=== PATIENT | female | born 1985 | race American Indian/Alaskan Native ===

== ENCOUNTER 2021-10-03 10:02 | Outpatient (CLI) | payer MEDICAID ==
[2021-10-03 10:56] VITALS: BP 119/69
--- NOTE | 2021-10-03 12:30 | Ultrasound Report ---
ULTRASOUND OBSTETRIC LIMITED ULTRASOUND BIOPHYSICAL PROFILE INDICATION / CLINICAL INFORMATION: LOW FLUID - BPP AND YAMILEX. Clinical Gestational Age (GA): 40.4 weeks.days COMPARISON: None available. FINDINGS: BREATHING MOVEMENT = 2 GROSS BODY MOVEMENT = 2 TONE = 2 QUALITATIVE AMNIOTIC FLUID VOLUME = 2 TOTAL BIOPHYSICAL SCORE = 8/8 HEART RATE (beats per minute): 138 AMNIOTIC FLUID INDEX (cm) = 7.9 (normal = 7-24 cm) PRESENTATION: Cephalic. ADDITIONAL FINDINGS: None. IMPRESSION: 1. Biophysical Score = 8/8 Signer Name: Harshal Vigil MD Signed: 10/03/2021 12:26 PM Workstation Name: [employer])
== END 2021-10-03 12:44 | disposition home or self-care (01) ==
LOC: TRG 10:02 → APU 10:05 → TRG 12:44
PROVIDERS: ATTEND Obstetrics & Gynecology
DX: Z34.93 Encounter for supervision of normal pregnancy, unspecified, third trimester (principal); Z3A.41 41 weeks gestation of pregnancy
CPT/HCPCS: 59025; 76815; 76819

== ENCOUNTER 2021-10-07 20:49 | Inpatient (IN) | payer MEDICAID ==
[2021-10-07] MEDS ORDERED: MINERAL OIL 30 ML ORAL LIQD PO PRN (22:17)
[2021-10-07] MEDS ORDERED: miSOPROStol 200 MCG TAB PR PRN (22:17)
[2021-10-07] MEDS ORDERED: LOPERAMIDE 2 MG CAP PO PRN (22:17)
[2021-10-07] MEDS ORDERED: ONDANSETRON 4 MG/2 ML INJ IV PRN (22:17)
[2021-10-07] MEDS ORDERED: ACETAMINOPHEN 325 MG TAB PO PRN (22:17)
[2021-10-07] MEDS ORDERED: fentaNYL 100 MCG/2 ML INJ IV PRN (22:17)
[2021-10-07] MEDS ORDERED: CARBOPROST TROMETHAMINE 250 MCG/1 ML INJ IM PRN (22:17)
[2021-10-07] MEDS ORDERED: METHYLERGONOVINE MALEATE 0.2 MG/ML VIAL IM PRN (22:17)
[2021-10-07] MEDS ORDERED: LIDOCAINE (2%) 20 MG/1 ML VIAL 20 ML MDV INFILTRATI ONE (22:17)
[2021-10-07] MEDS ORDERED: TERBUTALINE 1 MG/1 ML INJ SUB-Q PRN (22:17)
[2021-10-07] MEDS ORDERED: BUTORPHANOL 2 MG/1 ML INJ IV PRN (22:17)
[2021-10-07] MEDS ORDERED: OXYTOCIN 10 UNIT/1 ML INJ IM PRN (22:17)
[2021-10-07] MEDS ORDERED: PENICILLIN G POTASSIUM 5 MIL.UNITS in SODIUM CHLORIDE 0.9% 100 ML IV ONE (22:49)
[2021-10-07 22:58] LABS: Hematocrit 32.4 % (30.3-42.9); Hemoglobin 10.5 gm/dl (10.1-14.3); Mean Corpuscular HGB Conc 33 % (30-34); Mean Corpuscular Volume 84 fl (79-97); Platelet Count 216 K/mm3 (140-440); Red Blood Count 3.87 M/mm3 (3.65-5.03); Red Cell Distribution Width 14.3 % (13.2-15.2)
[2021-10-07] MEDS ORDERED: OXYTOCIN DRIP 30 UNITS/500 ML BAG IV SCH ×2 (23:00)
[2021-10-07] MEDS: LACTATED RINGERS 1,000 ML IV SCH (23:11)
--- NOTE | 2021-10-07 23:53 | History and Physical Report ---
History of Present Illness Date of examination: 10/07/21 Date of admission: 10/07/2021 Chief complaint: Induction of labor secondary to post due date, oligohydramnios, and growth restriction History of present illness: 36-year-old at 41-1/7 weeks gestation presents to labor and delivery for induction of labor secondary to post due date, oligohydramnios, and growth restriction. The patient has a history of a previous and successful 's thereafter. She has no vaginal bleeding or leaking of fluid. There is good movement. The method of cervical ripening was chosen based on shared medical decision making was Cook's catheter with a low-dose Pitocin. She was scheduled for a repeat delivery today. However, she changed her mind and strongly desired to attempt another . The risks, alternatives, and benefits were explained the patient. She understood the risk of uterine rupture is less than 1%. She wished to proceed. Past History Past Medical History: asthma, other (Sickle cell trait) Past Surgical History: section BLENDER SNUFF History: abnormal PAP smear (ASCUS Pap, HR-HPV (+)), herpes Family/Genetic History: diabetes, hypertension Social history: no significant social history - Obstetrical History Expected Date of Delivery: 09/29/21 Actual Gestation: 41 Week(s) 2 Day(s) : 8 Para: 4 Hx # Term Pregnancies: 4 Spontaneous Abortions: 2 Induced : 1 Medications and Allergies Allergies Allergy/AdvReac Type Severity Reaction Status Date / Time No Known Allergies Allergy Unverified 11/24/14 12:42 Home Medications Medication Instructions Recorded Confirmed Last Taken Type Nitrofurantoin [place]/M-Cryst 100 mg PO Q12HR #14 capsule 11/24/14 Unknown Rx [Macrobid CAP] metroNIDAZOLE 0.75%(NF) [Metrogel 1 applicatio TP BID #1 tube 11/24/14 Unknown Rx 0.75% TOPICAL] Active Meds: Active Medications Acetaminophen (Acetaminophen 325 Mg Tab) 650 mg PO Q4H PRN PRN Reason: Pain, Mild (1-3) Butorphanol Tartrate (Butorphanol 2 Mg/1 Ml Inj) 1 mg IV Q2H PRN PRN Reason: Pain, Moderate(4-6) LABOR PAIN Carboprost Tromethamine (Carboprost Tromethamine 250 Mcg/1 Ml Inj) 250 mcg IM ONCE PRN PRN Reason: Uterine Bleeding Ephedrine Sulfate (Ephedrine Sulfate 50 Mg/1 Ml Inj) 10 mg IV Q2M PRN PRN Reason: Hypotension Fentanyl (Fentanyl 100 Mcg/2 Ml Inj) 100 mcg IV Q2H PRN PRN Reason: Pain,Severe (7-10) LABOR PAIN Penicillin G Potassium 2.5 mil (.units/ Sodium Chloride) 50 mls @ 100 mls/hr IV Q4H MAY; Protocol Oxytocin/Sodium Chloride (Pitocin/Ns 30 Unit/500ml) 30 units in 500 mls @ 2 mls/hr IV TITR MAY; Protocol Last Admin: 10/07/21 23:17 Dose: 2 mls/hr, 2 mls/hr Lactated Ringer's (Lactated Ringers) 1,000 mls @ 125 mls/hr IV DIRECT MAY Last Admin: 10/07/21 23:11 Dose: 125 mls/hr Oxytocin/Sodium Chloride (Pitocin/Ns 30 Unit/500ml) 30 units in 500 mls @ 40 mls/hr IV TITR MAY; Protocol Loperamide HCl (Loperamide 2 Mg Cap) 2 mg PO ONCE PRN PRN Reason: give with Hemabate Methylergonovine Maleate (Methylergonovine Maleate 0.2 Mg/Ml Vial) 0.2 mg IM ONCE PRN PRN Reason: Uterine Bleeding Mineral Oil (Mineral Oil 30 Ml Oral Liqd) 30 ml PO QHS PRN PRN Reason: Constipation Misoprostol (Misoprostol 200 Mcg Tab) 800 mcg [place] ONCE PRN PRN Reason: Uterine Bleeding Ondansetron HCl (Ondansetron 4 Mg/2 Ml Inj) 4 mg IV Q8H PRN PRN Reason: Nausea And Vomiting Oxytocin (Oxytocin 10 Unit/1 Ml Inj) 10 unit IM ONCE PRN PRN Reason: Uterine Bleeding Terbutaline Sulfate (Terbutaline 1 Mg/1 Ml Inj) 0.25 mg SUB-Q ONCE PRN PRN Reason: Hyperstimulation/Hypertonicity Review of Systems All systems: negative - Vital Signs Vital signs: Vital Signs Resp Pulse Ox 14 100 10/07/21 21:09 10/07/21 21:09 Temp Pulse Resp BP Pulse Ox 79 14 110/63 100 10/07/21 23:50 10/07/21 21:09 10/07/21 23:40 10/07/21 23:50 - Physical Exam Breasts: Positive: normal Cardiovascular: Regular rate Lungs: Positive: Normal air movement Abdomen: Positive: normal appearance Genitourinary (Female): Positive: normal external genitalia, normal perenium Vulva: both: normal Vagina: Positive: normal moisture Uterus: Positive: enlarged Adnexa: both: normal Anus/Rectum: Positive: normal perianal skin Extremities: Positive: normal Deep Tendon Reflex Grade: Normal +2 - Obstetrical FHR: category 1 Uterine Contraction Monitor Mode: External Results Result Diagrams: 10/07/21 22:50 Abnormal lab results 10/07/21 Range/Units 22:50 MCH 27 L (28-32) pg All other labs normal. Ultrasound: report reviewed, image reviewed (OB ULtrasound Limited= SLIUP. Anterior placenta. Vertex. EFW= 2844 g (3rd %-ile). YAMILEX= 4.7 cm.) Assessment and Plan - Patient Problems (1) 41 weeks gestation of Current Visit: Yes Status: Acute Plan to address problem: care is up-to-date at [facility] [employer]. The patient is GBS positive. (2) Post term at 41 weeks gestation Current Visit: Yes Status: Acute Plan to address problem: This patient is past her due date. Induction of labor is recommended. (3) growth restriction Current Visit: Yes Status: Acute Plan to address problem: The estimated weight is in the 3rd percentile. The etiology for this is unknown. Induction of labor is recommended at this gestational age to decrease the risk of stillbirth. (4) Oligohydramnios in third trimester Current Visit: Yes Status: Acute Plan to address problem: The amniotic fluid index is 4.7 cm. The etiology for this is unknown. Induction of labor is recommended to decrease the risk of stillbirth. (5) Desires (vaginal after ) trial Current Visit: Yes Status: Acute Plan to address problem: The patient has a history of previous delivery followed by successful 's. She was scheduled for a repeat delivery today. However, she changed her mind and strongly desired to attempt another . The risks, alternatives, and benefits were explained the patient. She understood the risk of uterine rupture is less than 1%. She wished to proceed. The method of cervical ripening was chosen based on shared medical decision making was Cook's catheter with a low-dose Pitocin. (6) Previous delivery, antepartum Current Visit: Yes Status: Acute Plan to address problem: The patient has a history of a previous delivery. (7) Asthma affecting in third trimester Current Visit: Yes Status: Acute Plan to address problem: Prescribed home dose of albuterol. No Hemabate in the event that there is hemorrhage. (8) Encounter for induction of labor Current Visit: Yes Status: Acute Plan to address problem: The method of cervical ripening was chosen based on shared medical decision making was Cook's catheter with a low-dose Pitocin. (9) Group B Streptococcus carrier, +RV culture, currently Current Visit: Yes Status: Acute Plan to address problem: Penicillin is ordered for intrapartum GBS prophylaxis. (10) Genital herpes affecting in third trimester Current Visit: Yes Status: Acute Plan to address problem: There are no active herpes lesions. There are no prodromal symptoms. The patient was on Valtrex for suppression. We will continue the same dose. (11) Sickle cell trait in mother affecting Current Visit: Yes Status: Acute Plan to address problem: The patient is sickle cell trait positive. Her partner was advised to be tested. (12) ASCUS with positive high risk HPV cervical Current Visit: Yes Status: Acute Plan to address problem: Colposcopy .
[2021-10-08] MEDS ORDERED: BUTORPHANOL 2 MG/1 ML INJ IV PRN (00:01)
--- NOTE | 2021-10-08 00:02 | Ultrasound Report ---
ULTRASOUND OBSTETRIC LIMITED INDICATION / CLINICAL INFORMATION: estimated weight, YAMILEX. - Clinical Gestational Age (GA) in weeks, days: 41, 1 TECHNIQUE: Transabdominal. COMPARISON: 10/03/2021 FINDINGS: HEART RATE (beats per minute): 132 AMNIOTIC FLUID INDEX (cm) = 4.7 (normal = 7-24 cm) PRESENTATION: Cephalic. ADDITIONAL FINDINGS: Estimated age by ultrasound is 36 weeks 0 days. Estimated weight is 2844 g . Previously, amniotic fluid index was 7.9 cm. IMPRESSION: 1. Viable intrauterine has an amniotic fluid index of 4.7 cm. 2. Estimated weight 2844 g. Signer Name: Alberto Brewster MD Signed: 10/07/2021 11:58 PM Workstation Name: [id number]
[2021-10-08] MEDS ORDERED: PENICILLIN G POTASSIUM 2.5 MIL.UNITS in SODIUM CHLORIDE 0.9% 50 ML IV SCH (02:00)
[2021-10-08] MEDS ORDERED: fentaNYL-BUPIV 2 MCG/ML-0.125% 200 MCG/100 ML BAG EPIDURAL SCH ×2 (02:13→05:00)
[2021-10-08] MEDS ORDERED: ePHEDrine SULFATE 50 MG/1 ML INJ IV PRN (02:13)
[2021-10-08] MEDS ORDERED: NALOXONE 0.4 MG/1 ML INJ IV PRN ×2 (02:13→04:43)
--- NOTE | 2021-10-08 02:47 | Anesthesia Consultation ---
Anesthesia Consult and Med Hx Date of service: 10/08/21 - Airway Anesthetic Teeth Evaluation: Good ROM Head & Neck: Adequate Mental/Hyoid Distance: Adequate Mallampati Class: Class II Intubation Access Assessment: Probably Good - Pulmonary Exam CTA: Yes - Cardiac Exam Cardiac Exam: RRR - Pre-Operative Health Status ASA Pre-Surgery Classification: ASA2 Proposed Anesthetic Plan: Epidural - Pulmonary Hx Smoking: No Hx Asthma: No Hx Respiratory Symptoms: No SOB: No COPD: No Home Oxygen Therapy: No Hx Pneumonia: No Hx Sleep Apnea: No - Cardiovascular System Hx Hypertension: No Hx Coronary Artery Disease: No Hx Heart Attack/AMI: No Hx Angina: No Hx Percutaneous Transluminal Coronary Angioplasty (PTCA): No Hx Cardia Arrhythmia: No Hx Pacemaker: No Hx Internal Defibrillator: No Hx Valvular Heart Disease: No Hx Heart Murmur: No Hx Peripheral Vascular Disease: No - Central Nervous System Hx Neuromuscular Disorder: No Hx Seizures: No CVA: No Hx Psychiatric Problems: No - Gastrointestinal Hx Ulcer: No Hx Gastroesophageal Reflux Disease: No - Endocrine Hx Renal Disease: No Hx End Stage Renal Disease: No Hx Cirrhosis: No Hx Liver Disease: No Hx Insulin Dependent Diabetes: No Hx Non-Insulin Dependent Diabetes: No Hx Thyroid Disease: No Hx Hypothyroidism: No Hx Hyperthyroidism: No - Hematic Hx Anemia: No Hx Sickle Cell Disease: No - Other Systems Hx Alcohol Use: No Hx Substance Use: No Hx Cancer: No Hx Obesity: No
--- NOTE | 2021-10-08 02:47 | Anesthesia Day of Surgery ---
Anesthesia Day of Surgery - Day of Surgery Patient Examined: Yes Patient H&P Reviewed: Yes Patient is NPO: Yes Beta Blockers: No Cardiac Clearance: No Pulmonary Clearance: No Cleve's Test: N/A
--- NOTE | 2021-10-08 02:47 | Progress Note ---
Labor Epidural - Labor Epidural Start Time: 02:28 Stop Time: 02:32 Performed by:: VIANNEY DAHL Procedure: Epidural Requested for Labor Pain. H&P and PT Chart reviewed and consent obtained. Time out performed and the procedure was explained, all questions answered. Patient was placed in a sitting position with monitors applied. The PTs back was prepped and draped in usual sterile fashion. The Skin was localized with 3 mL of 1% lidocaine at L3-L4. A 17-gauge Touhy epidural needle was advanced to JEFF with saline at 7 cm and no blood/CSF was noted via epidural needle. Epidural catheter was advanced to 12 cm. There was negative aspiration for blood and CSF in the catheter and negative response to a test dose of 3 ml 1.5% lidocaine w/ Epi and a sterile dressing was applied Patient tolerated the procedure well and there were no immediate complications noted.
[2021-10-08] MEDS: LACTATED RINGERS 1,000 ML IV SCH (02:53)
[2021-10-08] MEDS: ePHEDrine SULFATE 50 MG/1 ML INJ IV PRN ×3 (03:41→04:21)
[2021-10-08] MEDS ORDERED: ePHEDrine SULFATE 50 MG/1 ML INJ IM PRN ×2 (04:43→08:30)
[2021-10-08] MEDS ORDERED: ALBUTEROL 8.5 GM MDI INHALATION IH PRN (05:37)
[2021-10-08] MEDS ORDERED: SODIUM CHLORIDE 0.9% 1000 ML 1,000 ML VG SCH ×3 (05:45)
[2021-10-08] MEDS ORDERED: valACYclovir 500 MG TAB PO SCH (10:00)
[2021-10-08] MEDS ORDERED: MINERAL OIL 30 ML ORAL LIQD ONE (10:55)
--- NOTE | 2021-10-08 11:44 | Procedure Note ---
OB Delivery Note - Delivery Date of Delivery: 10/08/21 (1103) Surgeon: SAUL CANDELARIO Estimated blood loss: 200cc - Vaginal Delivery presentation: vertex Delivery position: OA Intrapartum events: postterm- > or = 42 weeks, meconium (terminal ), mult. late decelerations, mult.variable deceleratio Delivery induction: oxytocin (Cook's Cervical Ripening balloon) Delivery augmentation: rupture of membranes, pitocin Delivery monitor: external FHT, external uterine Route of delivery: Delivery placenta: spontaneous Delivery cord: 3 umbilical vessels Delivery laceration: none Anesthesia: none Delivery comments: of a live 6'1 male infant over a intact perineum under epidural anesthesia with Apgars of 7 and 8 at 1103 on 10/08/2021. Cord double clamped and cut by JOSE Candelario, infant handed directly to awaiting NICU/RESP team due to a large amount of terminal meconium. Cord blood and Cord blood gasses collected. Spontaneous delivery of placenta complete and intact with [place]rera side presenting at 1109. Fundus is firm and midline located 4 below the U. Lochia is scant. GBS + treated x 3. - Infant A at 1 minute: 7 at 5 minutes: 8 Gender: Male (6'1)
[2021-10-08] MEDS ORDERED: LANOLIN/ZINC/DIMETHICONE (LANSINOH) 7 GM TP PRN (12:00)
[2021-10-08] MEDS ORDERED: diphenhydrAMINE 25 MG CAP PO PRN (12:00)
[2021-10-08] MEDS ORDERED: WITCH HAZEL/ GLYCERIN PAD TP PRN (12:00)
[2021-10-08] MEDS ORDERED: PROMETHAZINE 25 MG TAB PO PRN (12:00)
[2021-10-08 12:31] LABS: Cord Art Bld Carbxyhemoglobin 1.3; Cord Art Bld Methemoglobin 0.8 mmHg
[2021-10-08 12:40] LABS: Cord Venous Blood HCO3 18.7; Cord Venous Blood PO2 33.3
[2021-10-08 12:42] LABS: Cord Arterial Oxyhemoglobin 67.1; Cord Venous Oxyhemoglobin 60.3
[2021-10-08] MEDS: HYDROcodone/ACETAMINOPHEN 5-325 MG TAB PO PRN ×2 (15:41→22:12)
--- NOTE | 2021-10-08 16:36 | Post Anesthesia Evaluation ---
- Post Anesthesia Evaluation Patient Participated: Yes Airway Patent: Yes Stable Respiratory Function: Yes Nausea/Vomiting: No Temp > 96.8F: Yes Pain Manageable: Yes Adequeate Hydration: Yes Anesthesia Complications: No Block Receding Appropriately: Yes Patient on Ventilator: No
[2021-10-08] MEDS: IBUPROFEN 800 MG TAB PO SCH (18:53)
[2021-10-09 00:39] LABS: Hematocrit 28.6 % (30.3-42.9); Hemoglobin 9.8 gm/dl (10.1-14.3)
[2021-10-09] MEDS: IBUPROFEN 800 MG TAB PO SCH ×3 (03:09→14:50)
[2021-10-09 09:47] VITALS: BP 116/70
[2021-10-09] MEDS ORDERED: PRENATAL VIT27-FE FUMARATE-FOLIC ACID VIT TAB PO SCH (10:00)
--- NOTE | 2021-10-09 12:05 | Discharge Summary ---
Providers - Providers Date of Admission: 10/07/21 22:17 Date of discharge: 10/09/21 Attending physician: KATHERIN IBRAHIM MD Primary care physician: KATHERIN IBRAHIM MD Hospitalization Reason for admission: induction of labor Delivery: Episiotomy: none Other procedures: none complications: none Discharge diagnosis: IUP at term delivered [place] baby: male Hospital course: uneventful Condition at discharge: Good Disposition: 01 HOME / SELF CARE / HOMELESS Plan - Provider Discharge Summary Activity: routine, no sex for 6 weeks, no strenuous exercise Diet: routine Instructions: routine Additional instructions: [] Smoking cessation referral if applicable(refer to patient education folder for contact #) [] Refer to [facility]'s [facility] Booklet Call your doctor immediately for: * Fever > 100.5 * Heavy vaginal bleeding ( >1 pad per hour) * Severe persistent headache * Shortness of breath * Reddened, hot, painful area to leg or breast * Drainage or odor from incision. * Keep incision clean and dry at all times and follow doctor's instructions regarding bathing/showering - Follow up plan Follow up: KATHERIN IBRAHIM MD [Primary Care Provider] - 6 Weeks
--- NOTE | 2021-10-09 12:05 | Progress Note ---
Assessment and Plan A: PPD # 1 - stable P: Discharge home today Discharge instructions given Subjective - Subjective Date of service: 10/09/21 Principal diagnosis: PPD # 1 - stable Patient reports: appetite normal [place]: doing well Objective - Vital Signs Latest vital signs: Vital Signs Temp Pulse Resp BP BP Pulse Ox Pulse Ox 10/09/21 08:40 98 F 87 20 116/70 100 10/09/21 00:08 97.5 F L 87 20 108/65 98 10/08/21 21:39 97.8 F 87 20 110/66 97 10/08/21 19:22 98 10/08/21 14:30 98 10/08/21 13:04 110 H 100 10/08/21 12:59 60 100 10/08/21 12:55 90 139/82 10/08/21 12:53 91 H 100 10/08/21 12:48 89 100 10/08/21 12:43 93 H 99 10/08/21 12:40 85 112/56 10/08/21 12:38 85 100 10/08/21 12:33 89 100 10/08/21 12:28 104 H 100 10/08/21 12:25 93 H 111/58 10/08/21 12:23 86 100 10/08/21 12:18 89 100 10/08/21 12:13 90 100 10/08/21 12:11 86 110/57 10/08/21 12:08 99 H 100 Intake and Output 10/08/21 10/09/21 10/09/21 22:59 06:59 14:59 Intake Total 600 240 Output Total 700 Balance -100 240 Intake: Oral 600 240 Output: Urine 700 Void 700 Other: Total, Intake Amount 240 240 Total, Output Amount 200 # Voids Void 1 1 Estimated Blood Loss 200 - Exam Breasts: Present: deferred Cardiovascular: Present: Regular rate Lungs: Present: Clear to auscultation Abdomen: Present: normal appearance Vulva: both: normal Uterus: Present: fundal height below umbilicus Extremities: Present: normal Deep Tendon Reflex Grade: Normal +2 Incision: Present: intact - Labs Labs: Abnormal lab results 10/09/21 Range/Units 00:24 Hgb 9.8 L (10.1-14.3) gm/dl Hct 28.6 L (30.3-42.9) %
[2021-10-09] MEDS: HYDROcodone/ACETAMINOPHEN 5-325 MG TAB PO PRN (14:52)
== END 2021-10-09 03:30 | disposition home or self-care (01) | DRG 774 ==
LOC: TRG 20:49 → LD 20:53 → TRG 22:17 → LD 22:17 → OB 10-08 14:38
PROVIDERS: ADMIT Obstetrics & Gynecology Gynecology; ATTEND Obstetrics & Gynecology Gynecology
PROC: 10E0XZZ Delivery of Products of Conception, External Approach (ICD-10-PCS; principal; 2021-10-08)
PROC: 10907ZC Drainage of Amniotic Fluid, Therapeutic from Products of Conception, Via Natural or Artificial Opening (ICD-10-PCS; 2021-10-08)
PROC: 3E0R3BZ Introduction of Anesthetic Agent into Spinal Canal, Percutaneous Approach (ICD-10-PCS; 2021-10-08)
PROC: 00HU33Z Insertion of Infusion Device into Spinal Canal, Percutaneous Approach (ICD-10-PCS; 2021-10-08)
DX: O34.219 Maternal care for unspecified type scar from previous cesarean delivery (principal); O98.32 Other infections with a predominantly sexual mode of transmission complicating childbirth; O36.5930 Maternal care for other known or suspected poor fetal growth, third trimester, not applicable or unspecified; Z3A.41 41 weeks gestation of pregnancy; D57.3 Sickle-cell trait; Z83.3 Family history of diabetes mellitus; Z82.49 Family history of ischemic heart disease and other diseases of the circulatory system; A60.00 Herpesviral infection of urogenital system, unspecified; O48.0 Post-term pregnancy; O41.03X0 Oligohydramnios, third trimester, not applicable or unspecified; O34.211 Maternal care for low transverse scar from previous cesarean delivery; O99.52 Diseases of the respiratory system complicating childbirth; O99.824 Streptococcus B carrier state complicating childbirth; O99.02 Anemia complicating childbirth; D57.1 Sickle-cell disease without crisis; O77.0 Labor and delivery complicated by meconium in amniotic fluid; O76 Abnormality in fetal heart rate and rhythm complicating labor and delivery; Z37.0 Single live birth
CPT/HCPCS: 36415; 76816; 82803; 85014; 85018; 85027; 86850; 86900; 86901; G0378; J3490; J2540; J2590; J7030; J7120; U0003